=== PATIENT | female | born 1995 | race Caucasian/White ===

== ENCOUNTER 2018-10-31 15:37 | Emergency (ER) | payer OTHER ==
[~2018-10-31] VITALS: Ht 165.1 cm; Wt 61.3 kg
[2018-10-31 15:44] VITALS: BP 121/59
[2018-10-31 15:50] VITALS: BP 121/59
--- NOTE | 2018-10-31 15:50 | NUR ---
BIB SELF. AAO X4 C/O DYSURIA AND HEMATURIA X 4 HRS, LOWER ABD PAIN RADIATING TO LLQ, LOWER BACK, URGENCY, FREQUENCY, +NAUSEA, +DIZZINESS, +CHILLS. PT DENIES VOMITING, FEVER, SOB. HOB UP. BED SIDE RAILS UP X1. ON LOW BED POSITION, LOCKED. ER TO EVALUATE PT.
--- NOTE | 2018-10-31 15:53 | NUR ---
DR SEYMOUR AT BEDSIDE FOR PT EVAL
[2018-10-31] MEDS ORDERED: KETOROLAC 60 MG/2 ML VIAL IM ONE (15:55)
[2018-10-31] MEDS ORDERED: PHENAZOPYRIDINE 100 MG TAB PO ONE (15:55)
[2018-10-31] MEDS ORDERED: cefTRIAXone 1,000 MG in LIDOCAINE 1% ***ER ONLY *** 2.1 ML IM ONE (15:55)
[2018-10-31] MEDS ORDERED: cefTRIAXone 1,000 MG VIAL ONE (16:12)
[2018-10-31] MEDS ORDERED: LIDOCAINE MPF 1% - 5 mL VIAL 5 ML ONE (16:13)
[2018-10-31 16:24] LABS: BILIRUBIN,URINE 1+ (NEGATIVE); BLOOD, URINE 3+ (NEGATIVE); COLOR,URINE RED (YELLOW); LEUKOCYTE ESTERASE ,URINE 3+ (NEGATIVE); NITRITE, URINE NEGATIVE (NEGATIVE); UGLUCOSE NEGATIVE (NEGATIVE)
[2018-10-31 16:25] LABS: APPEARANCE,URINE BLOODY (CLEAR)
[2018-10-31 16:30] LABS: RBC,URINE TOO NUMEROUS TO COUN /HPF (0-5); WBC,URINE TOO MANY TO COUNT /HPF (0-5)
[2018-10-31 16:35] LABS: BARBITURATE, URINE NEG. ng/ml (NEG <=200); BENZODIAZEPINE, URINE NEG. ng/mL (NEG <=200); CANNABINOID, URINE NEG. ng/mL (NEG <=50); COCAINE, URINE NEG. ng/mL (NEG <=300); OPIATE, URINE NEG. ng/mL (NEG <=2000); PHENCYCLIDINE SCREEN,URINE NEG. ng/mL (NEG <=25)
--- NOTE | 2018-10-31 17:06 | NUR ---
Patient discharged with v/s stable. Written and verbal after care instructions given and explained. Patient alert, oriented and verbalized understanding of instructions. Ambulatory with steady gait. All questions addressed prior to discharge. ID band removed. Patient advised to follow up with PMD. Rx of PYRIDIUM AND LEVAQUIN given. Patient educated on indication of medication including possible reaction and side effects. Opportunity to ask questions provided and answered.
== END 2018-10-31 17:06 | disposition home or self-care (01) ==
LOC: MED 15:37
DX: N30.90 Cystitis, unspecified without hematuria (principal)
CPT/HCPCS: 80305; 81001; 81025; 87086; 87186; 96372; 99283; J0696; J1885; J2001

== ENCOUNTER 2018-11-04 17:08 | Emergency (ER) | payer OTHER ==
[~2018-11-04] VITALS: Ht 165.1 cm; Wt 61.2 kg
[2018-11-04 17:13] VITALS: BP 99/59
--- NOTE | 2018-11-04 17:19 | NUR ---
TO BED 9 WITH STEADY GAIT
--- NOTE | 2018-11-04 17:30 | NUR ---
23 year old female brought in by self c/o of abdominal pain, flank and back pain the last 2 days. Patient presented to the [facility] ER on 10/31/18 with UTI and currently taking antiobiotics prescribed. Patient's current pain level is 7/10. Denies N/V/D or pain upon urination. Denies Medhx. Bed in lowest position, HOB elevated with bedside rail up x1. Waiting for MD to evaluate patient.
[2018-11-04] MEDS ORDERED: IBUPROFEN 600 MG TAB PO ONE (18:00)
[2018-11-04 18:24] VITALS: BP 102/62
--- NOTE | 2018-11-04 18:24 | NUR ---
Patient discharged with v/s stable. Written and verbal after care instructions given and explained. Patient alert, oriented and verbalized understanding of instructions. Ambulatory with steady gait. All questions addressed prior to discharge. ID band removed. Patient advised to follow up with PMD. Rx of IBUPROFEN & NITROFURANTOIN given. Patient educated on indication of medication including possible reaction and side effects. Opportunity to ask questions provided and answered.
[2018-11-04 18:31] LABS: APPEARANCE,URINE CLEAR (CLEAR); BILIRUBIN,URINE NEGATIVE (NEGATIVE); BLOOD, URINE 2+ (NEGATIVE); COLOR,URINE YELLOW (YELLOW); LEUKOCYTE ESTERASE ,URINE NEGATIVE (NEGATIVE); NITRITE, URINE POSITIVE (NEGATIVE); PH,URINE 7.5 (5.0-9.0); UGLUCOSE TRACE (NEGATIVE)
[2018-11-04 18:47] LABS: RBC,URINE 20-50 /HPF (0-5); WBC,URINE 0-5 /HPF (0-5)
== END 2018-11-04 18:24 | disposition home or self-care (01) ==
LOC: MED 17:08
DX: N39.0 Urinary tract infection, site not specified (principal)
CPT/HCPCS: 81001; 81025; 87086; 99283

== ENCOUNTER 2020-11-28 00:25 | Emergency (ER) | payer OTHER ==
[~2020-11-28] VITALS: Ht 162.6 cm; Wt 56.7 kg
[2020-11-28 00:35] VITALS: BP 128/77
--- NOTE | 2020-11-28 00:39 | NUR ---
PT AMBULATED TO BED 05
--- NOTE | 2020-11-28 00:40 | NUR ---
PT. IS A 25 Y/O FEMALE THAT CAME INTO ED WITH C/O OF ABDOMINAL PAIN. PT. STATES HER LEFT LOWER ABDOMEN HURTS AND RADIATES TO HER LEFT LOWER BACK. PT. RATES PAIN AT 10/10 ON THE PAIN SCALE AT THIS TIME. PT. STATES IT STARTED 2-3 HRS. AGO PRIOR TO ARRIVAL. WHEN ASKED TO DESCRIBE PAIN, PT. STATES "I FEEL LIKE SOMETHING IS SITTING ON MY BLADDER." SHE ALSO STATES THAT HER FREQUENCY TO URINATE INCREASED AND HAS NAUSEA. PT. ALSO STATES SHE WAS PULLING HEAVY TIRES WHEN ASKED IF SHE DID ANYTHING THAT COULD HAVE CAUSED ABDOMINAL PAIN. DENIES V/D; SKIN IS PINK/WARM/DRY; AAOX4 WITH EVEN AND STEADY GAIT; HR EVEN AND REGULAR; PT DENIES ANY FEVER, CP, SOB, OR COUGH AT THIS TIME;VSS; PATIENT SITTING CROSS-LEGGED AT BEDSIDE; HOB ELEVATED; BEDRAILS UP X1; BED DOWN. ER MD MADE AWARE OF PT STATUS. PMH: DENIES ALLERGIES: EMILIO
[2020-11-28 00:50] LABS: APPEARANCE,URINE CLEAR (CLEAR); BILIRUBIN,URINE NEGATIVE (NEGATIVE); BLOOD, URINE 2+ (NEGATIVE); COLOR,URINE YELLOW (YELLOW); LEUKOCYTE ESTERASE ,URINE NEGATIVE (NEGATIVE); NITRITE, URINE NEGATIVE (NEGATIVE); PH,URINE 6.5 (5.0-9.0); UGLUCOSE NEGATIVE (NEGATIVE)
[2020-11-28 00:59] LABS: RBC,URINE 0-5 /HPF (0-5); WBC,URINE 0-5 /HPF (0-5)
[2020-11-28] MEDS ORDERED: cefTRIAXone 1,000 MG in LIDOCAINE MPF 1% 2.1 ML IM ONE (01:05)
[2020-11-28] MEDS ORDERED: LIDOCAINE MPF 1% 5 ML ONE (01:10)
[2020-11-28] MEDS ORDERED: cefTRIAXone 1,000 MG VIAL ONE (01:10)
--- NOTE | 2020-11-28 01:28 | NUR ---
PT. LAYING COMFORTABLY IN TAY POSITION, WAITING FOR DISPOSITION.
[2020-11-28] MEDS ORDERED: CEPH-588 PO ×2 (01:57→04:28)
[2020-11-28] MEDS ORDERED: PHEN-1877 PO ×2 (01:57→04:28)
--- NOTE | 2020-11-28 02:15 | NUR ---
Dr. Henao made aware of pt request for pain meds for 12/27 diffused abdominal pain
[2020-11-28] MEDS ORDERED: KETOROLAC 60 MG/2 ML VIAL IM ONE (02:17)
--- NOTE | 2020-11-28 02:18 | NUR ---
Nereyda osborne in ED - 11/28/20 at 0236 by [facility] Officer [employer]uca #[phone] from [place] placed pt on [id number] DTS hold.
[2020-11-28] MEDS ORDERED: KETOROLAC 30 MG/ML VIAL IM ONE (02:20)
--- NOTE | 2020-11-28 02:48 | NUR ---
Dr. Henao made aware of no decreased in pain for pt. stated will CT scan.
--- NOTE | 2020-11-28 02:56 | NUR ---
pt taken to CT via w/c
--- NOTE | 2020-11-28 03:08 | NUR ---
PT RETURN FROM CT
--- NOTE | 2020-11-28 03:45 | NUR ---
PT. STATES SHE FEELS NO PAIN ANYMORE. VOICES NO COMPLAINTS AT THIS TIME.
[2020-11-28 04:34] VITALS: BP 115/62
--- NOTE | 2020-11-28 04:34 | NUR ---
Patient discharged with v/s stable. Written and verbal after care instructions given and explained. Patient alert, oriented and verbalized understanding of instructions. Ambulatory with to car. All questions addressed prior to discharge. ID band removed. Patient advised to follow up with PMD. Rx of KEFLEX AND PYRIDIUM given. Patient educated on indication of medication including possible reaction and side effects. Opportunity to ask questions provided and answered.
== END 2020-11-28 04:34 | disposition home or self-care (01) ==
LOC: MED 00:25
DX: N39.0 Urinary tract infection, site not specified (principal); R30.0 Dysuria
CPT/HCPCS: 74176; 81001; 81025; 87086; 96372; 99284; J0696; J1885; J2001

== ENCOUNTER 2020-12-27 10:54 | Emergency (ER) | payer OTHER ==
[~2020-12-27] VITALS: Ht 165.1 cm; Wt 57.2 kg
[~2020-12-27 10:54] MED LIST: CEPH-588 PO; PHEN-1877 PO
[2020-12-27 11:09] VITALS: BP 117/68
--- NOTE | 2020-12-27 11:16 | NUR ---
PT TO AWAIT IN LOBBY
--- NOTE | 2020-12-27 11:40 | NUR ---
pt ambulated to [facility]
[2020-12-27] MEDS ORDERED: DIPH25TA53 PO (12:21)
[2020-12-27] MEDS ORDERED: KETO5DRO BOTH EYES (12:21)
[2020-12-27] MEDS ORDERED: FAMO-92 PO (12:21)
[2020-12-27] MEDS ORDERED: PRED20TA5 PO (12:21)
[2020-12-27] MEDS ORDERED: HYD2.5O TP (12:27)
--- NOTE | 2020-12-27 12:33 | NUR ---
ANNY ANDINO EXAMINING PT
[2020-12-27 12:40] VITALS: BP 115/61
--- NOTE | 2020-12-27 12:40 | NUR ---
Patient discharged with v/s stable. Written and verbal after care instructions given and explained. Patient alert, oriented and verbalized understanding of instructions. [g ED.DCMODE] with [g ED.D/CMODE]. All questions addressed prior to discharge. ID band removed. Patient advised to follow up with PMD. Rx of [] given. Patient educated on indication of medication including possible reaction and side effects. Opportunity to ask questions provided and answered.
== END 2020-12-27 12:40 | disposition home or self-care (01) ==
LOC: MED 10:54
DX: L50.9 Urticaria, unspecified (principal); Z88.0 Allergy status to penicillin; Z88.1 Allergy status to other antibiotic agents; Z79.899 Other long term (current) drug therapy
CPT/HCPCS: 99283